=== PATIENT | female | born 1955 | race Caucasian/White ===

== ENCOUNTER → 2017-05-09 | Day surgery (SDC) | payer MEDICARE ==
[~2017-05-09] MED LIST: ALPR1TAB6 PO; ASCO500T PO; ASPI-482 PO; BUPR150T11 PO; CHOL500016 PO; CINN500C2 PO; CLON1TAB3 PO; DICL100G18 TP; DIPH25CA58 PO; ESOM40CA PO; FURO-69 PO; HYDROmorphone 2 MG/ML VIAL IV PRN; IV RINGERS,LACTATED 1000ML 1,000 ML IV SCH; LIDO700A4 TP; LIDOCAINE 1% 1 ML SYRINGE. ID PRN; LIDOCAINE 2% PF Vial for OR 5 ML VIAL. ONE; METO-239 PO; MILN50TA PO; MORP100T30 PO; MORPHINE SULFATE 2 MG/ML DISP.SYRIN. IV PRN; OMEG1CAP6 PO; OXYC-328 PO; PROCHLORPERAZINE 10 MG/2 ML VIAL. IV PRN; PROM12.553 RC; PROPOFOL 20 ML IV ONE; PROPOFOL 40 ML IV ONE; VENTOLIN HFA18 GM INH; fentaNYL PF VIAL 100 MCG/2 ML VIAL IV PRN
[2017-05-09 08:17] VITALS: BP 148/81
--- NOTE | 2017-05-09 13:08 | CONS ---
DATE OF CONSULTATION: 05/09/2017 REASON FOR CONSULTATION: Abdominal pain and a history of colonic polyps. HISTORY OF PRESENT ILLNESS: A 62-year-old female with past medical history significant for cholecystectomy, appendectomy and colon resection with diverting colostomy and is seen for surveillance colon exam. Bowel habits with ostomy had been stable. No takedown is planned relative to previous surgeries, adhesions. No other complications. Denies any bleeding. No family history of Crohn's disease or colon cancer, but she does have a history of colon polyps and she is here today for surveillance exam. PAST MEDICAL HISTORY: Reflux, pancreatitis, colonic polyps, C. diff colitis, osteoarthrosis, depression. ALLERGIES: Methadone, methocarbamol, ondansetron. MEDICATIONS: Presently include albuterol, alprazolam, vitamin C, aspirin, bupropion, vitamin D, Voltaren, Benadryl, Nexium, Lasix, Lidoderm, metoprolol, Michelle, MS Contin, oxycodone and promethazine. SOCIAL HISTORY: She is a social drinker, former smoker. FAMILY HISTORY: Noncontributory. REVIEW OF SYSTEMS: As per records. PAST SURGICAL HISTORY: Cholecystectomy, appendectomy, colon resection, hysterectomy, tonsillectomy and tubal ligation. PHYSICAL EXAMINATION: GENERAL: Reveals a well-nourished, well-developed, female. VITAL SIGNS: Temperature is 97.3, pulse 94, respirations 20. HEENT: Normocephalic, atraumatic. Pupils and extraocular muscles not tested. Sclerae anicteric. NECK: Supple. LUNGS: Clear. CARDIOVASCULAR: Reveals S1, S2 without S3, S4 or appreciable murmur. ABDOMEN: Reveals a soft abdomen, normoactive bowel sounds, without appreciable hepatosplenomegaly. EXTREMITIES: Reveals no cyanosis, clubbing or edema. left lower quadrant. IMPRESSION: History of colonic polyps. Surveillance exam is recommended at this time. Risks and benefits have been discussed with the patient who is willing to proceed. I would like to thank Dr. Sierra for allowing us to consult and participate in the patient's care. AGATHA HIGHTOWER MD DR: [email or web address]/[email or web address] JOB#: [id number] / [id number]
== END | disposition home or self-care (01) ==
LOC: ENDOS 06:33
PROVIDERS: ATTEND Internal Medicine Gastroenterology
DX: Z09 Encounter for follow-up examination after completed treatment for conditions other than malignant neoplasm (principal); Z86.010 Personal history of colon polyps; K64.0 First degree hemorrhoids; K21.9 Gastro-esophageal reflux disease without esophagitis; M19.90 Unspecified osteoarthritis, unspecified site; I50.9 Heart failure, unspecified; E78.00 Pure hypercholesterolemia, unspecified; I11.0 Hypertensive heart disease with heart failure; J44.9 Chronic obstructive pulmonary disease, unspecified; E66.9 Obesity, unspecified; F32.9 Major depressive disorder, single episode, unspecified; Z90.49 Acquired absence of other specified parts of digestive tract; Z98.890 Other specified postprocedural states; Z87.19 Personal history of other diseases of the digestive system; Z88.8 Allergy status to other drugs, medicaments and biological substances; Z87.891 Personal history of nicotine dependence; Z90.710 Acquired absence of both cervix and uterus; Z98.51 Tubal ligation status; Z87.442 Personal history of urinary calculi; Z85.828 Personal history of other malignant neoplasm of skin
CPT/HCPCS: 45378; J2704; J2001